=== PATIENT | male | born 1955 | race Caucasian/White ===

== ENCOUNTER 2022-05-04 10:48 | Outpatient (CLI) | payer OTHER | END 2022-05-04 10:49 | disposition home or self-care (01) | LOC: CSHLAB 10:48 | PROVIDERS: ATTEND Internal Medicine | DX: Z20.822 Contact with and (suspected) exposure to COVID-19 (principal) | CPT/HCPCS: 87811 ==

== ENCOUNTER 2022-05-08 12:42 | Outpatient (CLI) | payer OTHER | END 2022-05-08 12:43 | disposition home or self-care (01) | LOC: CSHCP 12:42 | PROVIDERS: ATTEND Internal Medicine | DX: J84.89 Other specified interstitial pulmonary diseases (principal); R94.2 Abnormal results of pulmonary function studies | CPT/HCPCS: 94060; 94726; 94729; 94760 ==